=== PATIENT | female | born 1975 ===

== ENCOUNTER 2019-02-23 14:57 | Emergency (ER) | payer BC, OTHER ==
[2019-02-23 16:00] VITALS: BP 0/0
--- NOTE | 2019-02-23 17:48 | ED ---
Throat Pain/Nasal Congestion - HPI Summary HPI Summary: Patient presenting with left ear pain times one week. Patient states yesterday she developed a popping sensation and her left ear as well as feeling fatigued. Patient denies past medical history. Denies fever but notes chills and cough. Denies chest pain, shortness of breath, abdominal pain, vomiting, diarrhea, urinary symptoms. Symptoms are mild in severity. No current modifying factors. - History of Current Complaint Chief Complaint: EDEarPain Time Seen by Provider: 02/23/19 15:28 Hx Obtained From: Patient - Allergies/Home Medications Allergies/Adverse Reactions: Allergies Allergy/AdvReac Type Severity Reaction Status Date / Time No Known Allergies Allergy Verified 02/23/19 15:14 PMH/Surg Hx/FS Hx/Imm Hx Previously Healthy: Yes Infectious Disease History: No Infectious Disease History: Denies: Traveled Outside the [place] in Last 30 Days - Family History Known Family History: Positive: Non-Contributory - Social History Occupation: Unemployed Lives: With Family Alcohol Use: Weekly Substance Use Type: Reports: None Smoking Status (MU): Former Smoker Review of Systems Positive: Chills. Negative: Fever Eyes: Negative Positive: Ear Ache. Negative: Dental Pain Cardiovascular: Negative Positive: Cough. Negative: Shortness Of Breath Gastrointestinal: Negative Negative: Abdominal Pain, Vomiting, Diarrhea Genitourinary: Negative Musculoskeletal: Negative Skin: Negative Negative: Rash Neurological: Negative All Other Systems Reviewed And Are Negative: Yes Physical Exam Triage Information Reviewed: Yes Vital Signs On Initial Exam: Initial Vitals Temp Pulse Resp BP Pulse Ox 98.8 F 68 18 131/92 96 02/23/19 15:11 02/23/19 15:11 02/23/19 15:11 02/23/19 15:11 02/23/19 15:11 Vital Signs Reviewed: Yes Appearance: Positive: Well-Appearing - Pt. sitting on bed in NAD. Skin: Positive: Warm, Dry Head/Face: Positive: Normal Head/Face Inspection Eyes: Positive: Normal, EOMI, SAFIA, Conjunctiva Clear ENT: Positive: Pharynx normal, Other - Right TM unremarkable. Left Tm slightly erythematous, light reflux is off with fluid level. Neck: Positive: Supple, Nontender, Enlarged Nodes @ - left preauricluar. Negative: Nuchal Rigidity Respiratory/Lung Sounds: Positive: Clear to Auscultation, Breath Sounds Present. Negative: Rales, Rhonchi, Wheezes Cardiovascular: Positive: Normal, RRR Neurological: Positive: Normal, CN Intact II-III Psychiatric: Positive: Affect/Mood Appropriate Diagnostics - Vital Signs Vital Signs Temp Pulse Resp BP Pulse Ox 02/23/19 15:59 0 F 0 18 0/0 0 02/23/19 15:11 98.8 F 68 18 131/92 96 - Laboratory Lab Statement: Any lab studies that have been ordered have been reviewed, and results considered in the medical decision making process. EENT Course/Dx - Course Course Of Treatment: Pt.'s nurse helped with translation. Will treat patient with Augmentin and Flonase. Advised to follow-up with [facility] if symptoms persist. Ibuprofen for pain as directed. We'll return to the ER if symptoms change or worsen. Patient understands and agrees with plan. - Differential Diagnoses Differential Diagnoses: Allergic Rhinitis, Odontogenic Pain, Otitis Externa, Otitis Media - Diagnoses Provider Diagnoses: Otitis media Discharge - Sign-Out/Discharge Documenting (check all that apply): Patient Departure Patient Received Moderate/Deep Sedation with Procedure: No - Discharge Plan Condition: Good Disposition: HOME Prescriptions: Amoxicillin/Clavulanate TAB* [Augmentin TAB 875*] 875 mg PO BID #20 tab Fluticasone NASAL SPRAY 50MCG* [Flonase NASAL SPRAY 50MCG*] 2 spray BOTH NARES DAILY #1 btl Patient Education Materials: Ear Infection (ED) Print Language: UPPER SORBIAN Referrals: [facility] [Outside] [facility] [place] [facility] [Outside] Additional Instructions: Follow up with the [facility] if symptoms persist Ibuprofen 600mg every 8 hours x 1 week for pain Medications as directed Return to ER if symptoms change or worsen - Billing Disposition and Condition Condition: GOOD Disposition: Home
== END 2019-02-23 15:59 | disposition home or self-care (01) ==
LOC: ED 14:57
DX: H66.92 Otitis media, unspecified, left ear (principal); Z87.891 Personal history of nicotine dependence
CPT/HCPCS: 99281

== ENCOUNTER 2019-08-01 18:04 | Emergency (ER) | payer OTHER ==
[2019-08-01] MEDS ORDERED: diPHENhydraMINE IV* 50 MG/ML 1 ml VIAL (BENADRYL) IV ONE (18:19)
--- NOTE | 2019-08-01 18:25 | ED ---
Skin Complaint - History of Current Complaint Time Seen by Provider: 08/01/19 18:11 Stated Complaint: ANEXITY PER EMS Pain Intensity: 0 - Allergy/Home Medications Allergies/Adverse Reactions: Allergies Allergy/AdvReac Type Severity Reaction Status Date / Time No Known Allergies Allergy Verified 02/23/19 15:14 PMH/Surg Hx/FS Hx/Imm Hx Infectious Disease History: No Infectious Disease History: Denies: Traveled Outside the [place] in Last 30 Days - Family History Known Family History: Positive: Non-Contributory - Social History Alcohol Use: Weekly Substance Use Type: Reports: None Smoking Status (MU): Former Smoker Physical Exam Vital Signs On Initial Exam: Initial Vitals Temp Pulse Resp BP Pulse Ox 99.2 F 111 20 109/64 92 08/01/19 18:06 08/01/19 18:06 08/01/19 18:06 08/01/19 18:06 08/01/19 18:06 Diagnostics - Vital Signs Vital Signs Temp Pulse Resp BP Pulse Ox 08/01/19 18:17 91 08/01/19 18:06 99.2 F 111 20 109/64 92 - Laboratory Lab Statement: Any lab studies that have been ordered have been reviewed, and results considered in the medical decision making process. Discharge ED - Discharge Plan Referrals: No Primary Care Phys,NOPCP [Primary Care Provider] - - Attestation Statements Document Initiated by Scribe: Yes
--- NOTE | 2019-08-01 18:39 | ED ---
Complex/Multi-Sys Presentation - HPI Summary HPI Summary: Patient is a 43 y/o F presenting to [facility] via EMS with complaints of anxiety and rash to her chest and arms. 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 Rash is reported to have onset 30 minutes ago today, . She denies pruritus and pain but reports that the areas feel "hot". Patient denies SOB but then goes on to say that it feels like she is "suffocating". However, difficulty swallowing and throat swelling are denied. She reports no recent changes to her routine. PMHx is denied. Vitals in room are pulse 116, o2 90 on 3L, BP 109/64. 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 Home medications and allergies are reviewed. - History Of Current Complaint Chief Complaint: EDAllergicReaction Time Seen by Provider: 08/01/19 18:11 Hx Obtained From: Patient Onset/Duration: Sudden Onset, Lasting Minutes, Still Present Timing: Constant Severity Currently: None - pain denied Aggravating Factor(s): nothing Alleviating Factor(s): nothing Associated Signs And Symptoms: Positive: Other - rash at arms and chest that is warm, no pain, no pruritus; patient states it feels like she is "suffocating" but denies SOB, throat swelling, and difficulty swallowing. Negative: SOB - Allergies/Home Medications Allergies/Adverse Reactions: Allergies Allergy/AdvReac Type Severity Reaction Status Date / Time No Known Allergies Allergy Verified 02/23/19 15:14 PMH/Surg Hx/FS Hx/Imm Hx Sensory History: Denies: Hx Legally Blind, Hx Deafness Opthamlomology History: Denies: Hx Legally Blind EENT History: Denies: Hx Deafness Infectious Disease History: No Infectious Disease History: Denies: Traveled Outside the [place] in Last 30 Days - Family History Known Family History: Negative: Respiratory Disease - Social History Alcohol Use: Weekly Substance Use Type: Reports: None Smoking Status (MU): Former Smoker Review of Systems ENT: Other - negative - difficulty swallowing, throat swelling Respiratory: Other - reports that she is "suffocating" Negative: Shortness Of Breath Positive: Rash - rash to chest and arms, area feels warm, no pain, no pruritus Positive: Anxious All Other Systems Reviewed And Are Negative: Yes Physical Exam - Summary Physical Exam Summary: Appearance: The patient is well-nourished in no acute distress and in no acute pain. Skin: There are blotchy erythematous areas to the chest and arms. The skin is warm and dry, and skin color reflects adequate perfusion. HEENT: The head is normocephalic and atraumatic. The pupils are equal and reactive. The conjunctivae are clear and without drainage. Nares are patent and without drainage. Mouth reveals moist mucous membranes, and the throat is without erythema and exudate. The external ears are intact. The ear canals are patent and without drainage. The tympanic membranes are intact. Neck: The neck is supple with full range of motion and non-tender. There are no carotid bruits. There is no neck vein distension. Respiratory: Chest is non-tender. Lungs are clear to auscultation and breath sounds are symmetrical and equal. Cardiovascular: Heart is regular rate and rhythm. There is no murmur or rub auscultated. There is no peripheral edema and pulses are symmetrical and equal. Abdomen: The abdomen is soft and non-tender. There are normal bowel sounds heard in all four quadrants and there is no organomegaly palpated. Musculoskeletal: There is no back tenderness noted. Extremities are non-tender with full range of motion. There is good capillary refill. There is no peripheral edema or calf tenderness elicited. Neurological: Patient is alert and oriented to person, place and time. The patient has symmetrical motor strength in all four extremities. Cranial nerves are grossly intact. Deep tendon reflexes are symmetrical and equal in all four extremities. Psychiatric: The patient has an appropriate affect and does not exhibit any anxiety or depression. Triage Information Reviewed: Yes Vital Signs On Initial Exam: Initial Vitals Temp Pulse Resp BP Pulse Ox 99.2 F 111 20 109/64 92 08/01/19 18:06 08/01/19 18:06 08/01/19 18:06 08/01/19 18:06 08/01/19 18:06 Vital Signs Reviewed: Yes Procedures - Sedation Patient Received Moderate/Deep Sedation with Procedure: No Diagnostics - Vital Signs Vital Signs Temp Pulse Resp BP Pulse Ox 08/01/19 18:17 91 08/01/19 18:06 99.2 F 111 20 109/64 92 - Laboratory Result Diagrams: 08/01/19 18:32 08/01/19 18:32 Lab Statement: Any lab studies that have been ordered have been reviewed, and results considered in the medical decision making process. - Radiology CXR Radiology Interpretation Completed By: ED Physician Summary of Radiographic Findings: No acute process, pending official report. Re-Evaluation - Re-Evaluation First Eval Re-Evaluation Time: 20:42 Change: Improved Comment: Sx are improved, patient is agreeable with discharge. Complex Multi-Symp Course/Dx Course Of Treatment: Ms. Perales appeared to be having an allergic reaction when she presented. Her vitals were stable and she was nontoxic. She improved with IV Benadryl and observation. She had no complaints at the time of discharge and had remained stable. - Diagnoses Provider Diagnoses: Allergic reaction Discharge ED - Sign-Out/Discharge Documenting (check all that apply): Patient Departure - discharge - Discharge Plan Condition: Stable Disposition: HOME Patient Education Materials: General Allergic Reaction (ED) Print Language: SOMALI Referrals: [facility] [Outside] Additional Instructions: PLEASE RETURN TO ED FOR ANY NEW OR CONCERNING SYMPTOMS. PLEASE FOLLOW UP WITH YOUR PRIMARY CARE PHYSICIAN WITHIN THREE DAYS. - Billing Disposition and Condition Condition: STABLE Disposition: Home - Attestation Statements Document Initiated by Paigeibe: Yes Documenting Scribe: ROJELIO MAXWELL Provider For Whom Mindy is Documenting (Include Credential): TIMA BRITO MD Scribe Attestation: ROJELIO Chandra, scribed for TIMA BRITO MD on 08/01/19 at 2110. Scribe Documentation Reviewed: Yes Provider Attestation: The documentation as recorded by the ROJELIO block accurately reflects the service I personally performed and the decisions made by me, TIMA BRITO MD Status of Scribe Document: Viewed
[2019-08-01 18:51] LABS: ABS Basophils 0.1 10^3/ul (0-0.2); ABS Eosinophils 0.6 10^3/ul (0-0.6); ABS Lymphocytes 2.3 10^3/ul (1.0-4.8); ABS Monocytes 0.7 10^3/ul (0-0.8); ABS Neutrophils 2.5 10^3/ul (1.5-7.7); Eosinophil % 10.2 %; Hematocrit 37 % (35-47); Lymphocyte % 37.8 %; Mean Corpuscular HGB Conc 32 g/dL (31-36); Mean Corpuscular Hemoglobin 31 pg (27-31); Mean Corpuscular Volume 96 fL (80-97); Mean Platelet Volume 7.7 fL (7.4-10.4); Nucleated Red Blood Cells % 0.1; Platelet Count 353 10^3/uL (150-450); Red Blood Count 3.84 10^6 /uL (3.70-4.87); Red Cell Distribution Width 14 % (10-15); White Blood Count 6.2 10^3/uL (3.5-10.8)
[2019-08-01 18:56] LABS: ALT 10 U/L (7-52); AST 14 U/L (13-39); Albumin 4.2 g/dL (3.2-5.2); Albumin/Globulin Ratio 1.4 (1-3); Alkaline Phosphatase 52 U/L (34-104); Anion Gap 11 mmol/L (2-11); BUN/Creatinine Ratio 17.7 (8-20); Blood Urea Nitrogen 11 mg/dL (6-24); CO2 Carbon Dioxide 20 mmol/L (22-32); Calcium 8.9 mg/dL (8.6-10.3); Chloride 110 mmol/L (101-111); EGFR African American 128.4 (>60); EGFR Non-African American 106.1 (>60); Glucose 77 mg/dL (70-100); Sodium 141 mmol/L (135-145); Total Protein 7.2 g/dL (6.4-8.9)
[2019-08-01 19:03] LABS: HCG Pregnancy < 0.60 mIU/mL
[2019-08-01 21:07] VITALS: BP 104/62
== END 2019-08-01 21:07 | disposition home or self-care (01) ==
LOC: ED 18:04
DX: T78.49XA Other allergy, initial encounter (principal); F41.9 Anxiety disorder, unspecified; R21 Rash and other nonspecific skin eruption; Z87.891 Personal history of nicotine dependence; X58.XXXA Exposure to other specified factors, initial encounter
CPT/HCPCS: 36415; 71045; 80053; 83605; 84484; 84702; 85025; 93005; 96374; 99283; J1200